=== PATIENT | female | born 1945 | race Caucasian/White ===

== ENCOUNTER 2023-08-14 20:10 | Inpatient (IN) | payer OTHER, SELFPAY ==
[2023-08-14] VITALS (8 sets, daily range): BP systolic 145–177; BP diastolic 77–138; BMI 25.6
--- NOTE | 2023-08-14 16:58 | ED.GENMED ---
History of Present Illness
General
Chief Complaint: Musculo-Skeletal Complaint
Time Seen by Provider: 08/14/23 16:46
Travel History
Have you had any contact with someone who has COVID-19?: No
Do you have any symptoms of coronavirus? Fever > 100 degrees, chills, cough, shortness of breath, sore throat, loss of taste or smell, muscle aches, or headache?: No
History of Present Illness
History of Present Illness:
78-year-old female with history of COPD and hypertension presents to the emergency department for evaluation of right hip pain after falling in her kitchen. She was able to call for help but she was unable to get up. Was not on the ground for more
than an hour. There is an obvious shortening and external rotation of the right hip. Denies head strike or loss of consciousness
Review of Systems
Review of Systems
Allergies reviewed?: Yes
All Other Systems: ROS reviewed and negative except as documented in HPI and ROS
Phy Exam
Physical Exam
Physical Exam:
GEN: Well appearing, NAD, WDWN
HEENT: Oral mucosa moist, no scleral icterus
Cardiac: Regular rate
Lung: No respiratory distress, no tachypnea
MSK: Obvious shortening and external rotation of the right lower extremity with focal tenderness to the right hip
Skin: Good color, no pallor or jaundice, no rashes
Neuro: AO x3, moves all extremities freely
Psych: Calm, cooperative
Course
Orders/Labs/Results
Orders:
Orders
08/14/23 Dinner
Regular
08/14/23 16:57
HYDROmorphone [Dilaudid] 0.2 mg IV NOW STA
CR Hip - RT w/wo Pel 2-3 Vw* Urgent
Comment:
Reason For Exam: fall hip pain
Include a pelvis x-ray?: Yes
08/14/23 17:11
Complete Blood Count/With Diff Urgent
Comprehensive Metabolic Panel Urgent
08/14/23 18:25
HYDROmorphone [Dilaudid] 0.2 mg IV NOW STA
08/14/23 19:15
Add On- LAB Routine
Tests Added?: vitamin d-oh
08/14/23 19:16
EKG [Electrocardiogram (*1)] Routine
Reason for Study: PreOp
08/14/23 19:43
Admit/Transfer Patient As Directed
Co-Sign Provider:
Level of Care: Inpatient admission
Assign to:: Medical/Surgical
Physician / Group: Maryam Heck
Diagnosis: c
Reason for Hospitalization: right hip fracture
Expected length of stay greater than two midnights?: Yes
ELOS- Estimated Length of Stay in days: 3
I certify the patient meets the requirements for IP care: Yes
08/14/23 19:44
Code Status As Directed
Resuscitation Status: Full Code
08/14/23 20:48
Acetaminophen [Tylenol] 650 mg PO Q4HPRN PRN
Bisacodyl [Dulcolax] 10 mg RECTAL [id number] PRN
Docusate W/Senna [Senokot-S] 1 tablet PO BIDPRN PRN
HYDROmorphone [Dilaudid] 0.5 mg IV Q3HPRN PRN
Ondansetron Injectable [Zofran] 4 mg IV Q6HPRN PRN
Polyethylene Glycol Powder [Miralax] 17 grams PO DAILYPRN PRN
08/14/23 20:48
ORTHOPEDIC CONSULT Routine
Consulting Provider: Ramo Clark
Was physician already notified: Yes
Activity As Directed
Activity Level: As Tolerated
Pneumatic Compression Sleeves As Directed
Type: Knee high
Vital Signs As Directed
Frequency: Per unit guidelines
DX Deep Vein Thrombosis Video Routine
08/15/23 Breakfast
NPO
Allow oral meds: Yes
Allow clear liquids: No
Basic Metabolic Panel IN AM
Complete Blood Count/With Diff IN AM
Magnesium IN AM
Abnormal Lab Results
08/14/23
17:11
WBC 16.6 H 10^3/uL
(4.8-10.8)
RBC 4.01 L 10^6/uL
(4.20-5.40)
MCH 32.9 H pg
(27.0-31.0)
Abs Immat Gran (auto) 0.1 H 10^3/uL
(0-0.05)
Absolute Neuts (auto) 13.6 H 10^3/uL
(1.4-6.5)
Absolute Monos (auto) 1.2 H 10^3/uL
(0.1-0.6)
Immature Gran % 0.7 H %
(0-0.5)
Neutrophils % 81.5 H %
(42.2-75.2)
Lymphocytes % 9.9 L %
(20.5-51.1)
BUN 24 H mg/dl
(7-17)
Creatinine 0.5 L mg/dL
(0.6-1.0)
Glucose 125 H mg/dl
(70-99)
Calcium 10.3 H mg/dl
(8.4-10.2)
08/14/23 17:11
08/14/23 17:11
Vital Signs
Initial and Last Documented VS:
Initial Vital Signs
Temp Pulse Resp BP Pulse Ox
97.9 F 75 20 169/138 95
08/14/23 16:08 08/14/23 16:08 08/14/23 16:08 08/14/23 16:08 08/14/23 16:08
Last Documented Vital Signs
Temp Pulse Resp BP Pulse Ox
97.9 F 92 25 151/78 94
08/14/23 16:08 08/14/23 20:40 08/14/23 20:40 08/14/23 20:40 08/14/23 20:40
MDM/Problems Addressed
MDM/Problems Addressed:
X-rays of the right hip and pelvis independently interpreted by me show a displaced and shortened femoral neck fracture. Patient be admitted to the hospitalist service for orthopedic consultation and operative intervention
*Critical Care Note
Total Time (30-74mins, 75-104mins- exclusive of procedures): Not Applicable
ED Attending Note
-
Portions of this chart may have been created with voice recognition software.� Occasional wrong word or��sound alike� substitutions may have occurred due to the inherent limitations of voice recognition software.
Discharge Plan
Departure
Patient Disposition: Admit
Date of Disposition: 08/14/23
Time of Disposition: 19:11
Presentation/result/management discussed w/ accepting MD/DO: Hospitalist
Discharge Problem:
Closed fracture of neck of right femur
Interventions
Interventions:
*Risk Screen - Suicide Last Done: 08/14/23 16:08
*General Assessment Last Done: 08/14/23 16:08
*Neglect/Abuse Screening Last Done: 08/14/23 16:08
ED- Fall Risk Assessment Last Done: 08/14/23 16:14
*ED COVID-19 Vaccine History Last Done: 08/14/23 16:08
*Nursing Disposition Last Done: 08/14/23 20:44
ED-Musculoskeletal Assessment Last Done: 08/14/23 16:14
Discharge Date and Time
Discharge Date/Time: 08/14/23 20:45
[2023-08-14] MEDS: DILAUDID 0.200000000000000011 MG IV ×2 (17:11→18:29)
[2023-08-14 17:29] LABS: % Basophils 0.2 % (0-2); % Eosinophils 0.8 % (0-6); % Immature Granulocytes 0.7 % (0-0.5); % Lymphocytes 9.9 % (20.5-51.1); % Monocytes 6.9 % (1.7-9.3); % Neutrophils 81.5 % (42.2-75.2); Absolute Eosinophils 0.1 10^3/uL (0-0.7); Absolute Immature Granulocytes 0.1 10^3/uL (0-0.05); Absolute Lymphocytes 1.7 10^3/uL (1.2-3.4); Absolute Monocytes 1.2 10^3/uL (0.1-0.6); Absolute Neutrophils 13.6 10^3/uL (1.4-6.5); Hematocrit 37.3 % (37.0-47.0); Hemoglobin 13.2 g/dL (12.0-16.0); Mean Corp Hgb Conc. 35.4 g/dL (33.0-37.0); Mean Corpuscular Hgb 32.9 pg (27.0-31.0); Mean Platelet Volume 10.1 fL (7.4-10.4); Nucleated Red Blood Cells % 0 %; Platelet Count 203 10^3/uL (130-400); Red Blood Cell Count 4.01 10^6/uL (4.20-5.40); Red Cell Dist. Width 13.5 % (11.5-14.5); White Blood Cell Count 16.6 10^3/uL (4.8-10.8)
[2023-08-14 17:43] LABS: ALT (SGPT) 23 U/L (0-35); AST (SGOT) 28 U/L (14-36); Albumin 4.4 g/dl (3.5-5.0); Alkaline Phosphatase 113 U/L (38-126); Blood Urea Nitrogen 24 mg/dl (7-17); Calcium 10.3 mg/dl (8.4-10.2); Carbon Dioxide 23 mmol/L (22-30); Chloride 104 mmol/L (98-107); Estimated Creatinine Clearance 70 ml/min; Glucose 125 mg/dl (70-99); Potassium 3.9 mmol/L (3.5-5.1); Sodium 136 mmol/L (135-145); Total Bilirubin 0.8 mg/dl (0.2-1.3); Total Protein 7.9 g/dl (6.3-8.2); eGFR > 60.00
--- NOTE | 2023-08-14 19:11 | HPS.HSE ---
Addendum entered and electronically signed by Maryam Heck MD 08/14/23 20:18:
hold MACHINE SLAT BASKET MAKER Losartan and Spironolactone pre surgery - monitor BP
Original Note:
Family Physician
-
Family Physician: Lloyd Marti
Chief Complaint
-
right hip pain
History of Present Illness
Ms. Merry Rodrigues is a 78 yo woman with hx HTN, COPD, SARTHAK presents to the ER with right hip pain s/p fall. Patient was in her kitchen and reaching to put something on the counter when tripped and fell on her right side. She lives alone. She was
wearing an apple watch and was able to call her son to come help her.
Patient denies dizziness or palpitations prior to episode. She states that she has had work-up of intermittent non-exertional chest pain in past with normal results, she thinks she had a stress test. This has been occurring over years. She has
COPD
No recent refevers/chills. Had covid one month ago and took Paxlovid. No nausea/vomiting. Has IBS.
Medical History
Past Medical History
Past Medical History: Reports Other (hypertension, COPD, sarcoidosis, positive AFB, spinal stenosis, lower extremity neuropathy,)
Past Surgical History: Reports None
Social History
Tobacco: Former Smoker
Alcohol: None
Drug: None
Family History
Family History: Not pertinent
Allergies / Home Medications
Allergies reflects when Allergies were last updated in [facility].
Home Medications with original date entered in [facility]
Allergy/Medication List:
Allergies
Allergy/AdvReac Type Severity Reaction Status Date / Time
HEAVENLY Inhibitors Allergy cough Verified 01/05/23 21:03
amlodipine Allergy Swelling Verified 01/05/23 21:03
hydralazine Allergy Rash Verified 01/05/23 21:03
Influenza Virus Vaccines Allergy Hives Verified 01/05/23 21:03
levofloxacin [From Levaquin] Allergy Rash Verified 01/05/23 21:03
Home Medications
losartan 100 mg tablet 100 mg PO DAILY Blood Pressure 08/28/17
carvedilol 25 mg tablet 25 mg PO BID Blood Pressure 11/15/22
naproxen sodium 220 mg tablet (Aleve) 220 mg PO HS Pain 11/15/22
naproxen sodium 220 mg tablet (Aleve) 440 mg PO DAILY Pain 11/15/22
hydrochlorothiazide 12.5 mg tablet 12.5 mg PO BID #14 tabs 01/05/23
*awaiting final med rec
Review of Systems
-
History Source: Patient
A 12 point ROS was completed and negative except as noted: Yes
Physical Exam
Vital Signs
Vital Signs
Temp Pulse Resp BP Pulse Ox
97.9 F 86 15 155/77 95
08/14/23 16:08 08/14/23 19:01 08/14/23 19:01 08/14/23 18:00 08/14/23 19:01
Physical Exam
General: No Apparent Distress
HEENT: PERRLA
Respiratory: Clear; No Wheezes
Cardiac: S1/S2 and Regular Rhythm
GI: Soft and Non Tender
Musculoskeletal: No Edema
Skin: Warm and Dry; No Rash
Neuro: AO x 3
Psych: Calm
Laboratory Results
-
08/14/23 17:11
08/14/23 17:11
Laboratory Results
Total Bilirubin 0.8 mg/dl (0.2-1.3) 08/14/23 17:11
AST 28 U/L (14-36) 08/14/23 17:11
ALT 23 U/L (0-35) 08/14/23 17:11
Alkaline Phosphatase 113 U/L (38-126) 08/14/23 17:11
Data Reviewed
-
Diagnostic Radiology: Report Reviewed by me
Lab Data: Labs Reviewed by me
Impression/Plan
-
Ms. Merry Rodrigues is a 78 yo woman with hx HTN, COPD, sarcoidosis presents to the ER with right hip pain s/p fall resulting in right hip fracture.
Triage VS: T 97.9, P 75, RR 20, BP 169/138, SpO2 95%
LABS: WBC 16.6, Hg 13.2, PLT 203, Na 136, K+ 3.9, BUN 24, Cr 0.5, Glucose 125, Ca 10.3, T. Bili 0.8, AST 28, ALT 23, Alk Phos 113
Hip X-Ray Right Femoral Neck Fracture
Right Hip Fracture
-admit to med/surg
-Alena perioperative risk score = 0.2%; benefits of procedure outweigh benefits
-will obtain pre-op EKG
-NPO after MN
-Dr. Clark aware of admission
-pain control with IV dilaudid overnight
-SCD overnight for DVT PPx
Reactive Leukocytosis
-no e/o infection
-monitor
Essential HTN
-MACHINE SLAT BASKET MAKER Coreg and Losartan
*awaiting final med rec
DVT PPx SCD
[2023-08-14] MEDS: COREG 25 MG PO (20:40)
--- NOTE | 2023-08-14 22:18 | PTCARENOTE ---
pt transferred from ED approx 20:45, dx r hip fracture, vs stable, oriented to unit, precautions in place.
[2023-08-15] VITALS (8 sets, daily range): BP systolic 105–125; BP diastolic 54–66
[2023-08-15] MEDS: DILAUDID 0.5 MG IV (03:47)
[2023-08-15] MEDS: ZOFRAN 4 MG IV (03:47)
[2023-08-15 05:37] LABS: % Basophils 0.3 % (0-2); % Eosinophils 2.7 % (0-6); % Immature Granulocytes 0.5 % (0-0.5); % Lymphocytes 8.2 % (20.5-51.1); % Monocytes 6.4 % (1.7-9.3); % Neutrophils 81.9 % (42.2-75.2); Absolute Basophils 0.1 10^3/uL (0-0.2); Absolute Eosinophils 0.4 10^3/uL (0-0.7); Absolute Immature Granulocytes 0.1 10^3/uL (0-0.05); Absolute Lymphocytes 1.4 10^3/uL (1.2-3.4); Absolute Monocytes 1.1 10^3/uL (0.1-0.6); Absolute Neutrophils 13.6 10^3/uL (1.4-6.5); Hematocrit 35.6 % (37.0-47.0); Hemoglobin 12.6 g/dL (12.0-16.0); Mean Corp Hgb Conc. 35.4 g/dL (33.0-37.0); Mean Corpuscular Hgb 32.3 pg (27.0-31.0); Mean Corpuscular Volume 91.3 fL (81.0-99.0); Mean Platelet Volume 9.9 fL (7.4-10.4); Nucleated Red Blood Cells % 0 %; Platelet Count 196 10^3/uL (130-400); Red Cell Dist. Width 13.4 % (11.5-14.5); White Blood Cell Count 16.6 10^3/uL (4.8-10.8)
[2023-08-15 06:06] LABS: Blood Urea Nitrogen 21 mg/dl (7-17); Calcium 9.4 mg/dl (8.4-10.2); Carbon Dioxide 24 mmol/L (22-30); Chloride 104 mmol/L (98-107); Estimated Creatinine Clearance 70 ml/min; Glucose 119 mg/dl (70-99); Magnesium 1.9 mg/dl (1.6-2.3); Sodium 132 mmol/L (135-145); eGFR > 60.00
--- NOTE | 2023-08-15 08:11 | W.PN.UPDATE ---
Update Note
Progress Note Update
Full H&P to follow
78-year-old female with displaced right femoral neck fracture date of injury 14 Aug 2023
Isolated closed injury neurovascular intact
Recommended for surgery; consent obtained in chart for right hip hemiarthroplasty with Dr. Headley, possible Dr. Clark or Dr. Mesa if needed
Consent obtained and placed in chart. Laterality/skin signed. Patient's son present for discussion consent.
Patient ambulatory at baseline community ambulator with independent ADLs. No pre-existing hip osteoarthritic symptoms
Antibiotics on-call to the OR; n.p.o. Confirmed type and screen. Will update orders postop
[2023-08-15] MEDS: COREG PO ×2 (08:13→21:51)
--- NOTE | 2023-08-15 08:19 | CON.ORTHO ---
Consultation
-
Date/Time Consultation Requested: 14 Aug 2023 20:48
Date/Time Consultation Performed: 15 Aug 2023 0745
Requesting Provider: Dr. Maryam Heck
Performing Provider: LUISA Huston, Dr. Ramo Clark
Reason for Consultation: Right hip fracture
Consultation - Orthopedics
History
78-year-old female admitted to [facility] for sustained right hip injury after mechanical fall in her home yesterday with a date of injury of 14 Aug 2023. She had immediate pain and inability to bear weight contact emergency services
regarding [facility] which showed a displaced right hip fracture. She denies any previous hip pain or treatment for hip osteoarthritis. She does have a history of bilateral knee replacements. Denies any prodromal pain. Denies any
paresthesias. She is a community ambulator at baseline without assist devices with independent ADLs
Allergies / Home Medications
Medical History
Past Medical History
Past Medical History: Reports Other (hypertension, COPD, sarcoidosis, positive AFB, spinal stenosis, lower extremity neuropathy,)
Past Surgical History: Bilateral total knee arthroplasty
Social History
Tobacco: Former Smoker
Alcohol: None
Drug: None
Family History
Family History: Not pertinent
Allergy/AdvReac Type Severity Reaction Status Date / Time
HEAVENLY Inhibitors Allergy cough Verified 01/05/23 21:03
amlodipine Allergy Swelling Verified 01/05/23 21:03
hydralazine Allergy Rash/poss Verified 08/14/23 20:20
allergy?
Influenza Virus Vaccines Allergy Hives Verified 01/05/23 21:03
levofloxacin [From Levaquin] Allergy Rash/ITCHIN Verified 08/14/23 20:20
G
�Medication �Instructions �Recorded
losartan 100 mg tablet 100 mg PO NOON Blood Pressure 08/28/17
carvedilol 25 mg tablet 25 mg PO Q12H Blood Pressure 11/15/22
naproxen sodium 220 mg tablet 220 mg PO NOON Pain 11/15/22
(Aleve)
[place] Vitamin 1 cap PO BID Supplement 08/14/23
albuterol sulfate 90 mcg/actuation 2 puff inhalation R Q4HPRN PRN sob 08/14/23
aerosol inhaler
wpxibdtltwbw-bvlsrlmn-xqxmqt tablet 1 tab PO DAILY Supplement 08/14/23
naltrexone 2 mg PO DAILY 08/14/23
spironolactone 25 mg tablet 25 mg PO DAILY Fluid 08/14/23
Retention/Swelling
tiotropium bromide 2.5 2 inh inhalation R DAILY 08/14/23
mcg/actuation mist for inhalation
(Spiriva Respimat)
Vital Signs / Lab Results
Temp Pulse Resp BP Pulse Ox
98.9 F 61 14 125/67 92
08/14/23 23:10 08/15/23 08:13 08/14/23 23:10 08/15/23 08:13 08/14/23 23:10
08/15/23 05:21
08/15/23 05:21
IMAGING: X-rays taken of the pelvis and right hip show displaced right femoral neck fracture. Minimal hip arthrosis
Physical examination: Focused examination of the right lower extremity shows skin is intact with no erythema edema or ecchymosis. Neuro vas intact L3-S1. Right lower extremity shortened externally rotated.
Assessment / Plan
78-year-old female right displaced femoral neck fracture date of injury 14 Aug 2023
Her son was present; patient is consentable
Discussed with the patient as well as relative family members the significance of hip fractures there is an increased morbidity and mortality associated with these and they are significant injuries; reviewed that a portion of patient's return
towards ambulatory baseline status, another subset of patients are decreased when activity level, and other subset of patients pass away relative to comorbid conditions and decreased ambulatory status. Discussed it is recommended for majority of
patients to undergo operative intervention for optimal outcomes so that they may have an increased ambulatory status.
Images were shown and discussed with the patient regarding their injury. The injury and respective operative and nonoperative interventions reviewed with the patient and respective family members to include the risks and benefits rehabilitation and
prognosis for each. The treatment and operative technique, postoperative follow-up, postoperative rehabilitation and surgical prognosis was reviewed in detail. After thorough discussion of potential treatment options the patient and respective
family members wish to proceed with operative intervention.
It was further discussed with the patient that the injury sustained is considered a fragility fracture which occurs in the setting of osteoporosis. Discussed with the patient the significance of this as there is an increased risk of further
fragility fractures in the future. Recommend when discharged and in the nearby future for a follow-up with her primary care provider and discussion of management of osteoporosis and mitigating fall risk is much as possible in the future.
Recommended for surgery; consent obtained in chart for right hip hemiarthroplasty with Dr. Headley, possible Dr. Clark or Dr. Mesa if needed
Consent obtained and placed in chart. Laterality/skin signed. Patient's son present for discussion consent.
Patient ambulatory at baseline community ambulator with independent ADLs. No pre-existing hip osteoarthritic symptoms
Antibiotics on-call to the OR; n.p.o. Confirmed type and screen. Will update orders postop
[2023-08-15] MEDS: SPIRIVA RESPIMAT 2.5 MCG 2 PUFF INH (08:24)
--- NOTE | 2023-08-15 10:45 | W.PN.HOSP.TC ---
Today's Communication/Plan
-
Monitor vital signs see plan
Postop DVT prophylaxis per orthopedics
Continue with Spiriva
OR today
Assessment / Plan
Assessment / Plan
General: No Apparent Distress
HEENT: PERRLA
Respiratory: Clear; No Wheezes
Cardiac: S1/S2 and Regular Rhythm
GI: Soft and Non Tender
Musculoskeletal: No Edema
Skin: Warm and Dry; No Rash
Neuro: AO x 3
Psych: Calm
Right Hip Fracture s/p fall
Acute traumatic pathological fx 2/2 osteoporosis
-Alena perioperative risk score = 0.2%; benefits of procedure outweigh benefits
EKG with normal sinus rhythm with occasional PVC
-NPO for OR 08/14
Orthopedics following
-pain control
Reactive Leukocytosis
-no e/o infection
-monitor
Mild hyponatremia
monitor
History of osteoporosis
History of Sjogren's
Essential HTN
-POWER TOOL REPAIR TECHNICIAN Coreg
hold aldactone and losartan
History of COPD
Continue Spiriva
DVT PPx SCD
Anticipated Discharge: 24 - 48 hours
Subjective/Interval History
-
Date of Service: August 15, 2023
Denies nausea
Objective Data
-
Labs:
Laboratory Results
08/15/23
05:21
WBC 16.6 H
Hgb 12.6
Hct 35.6 L
Plt Count 196
Sodium 132 L
Potassium 4.0
Chloride 104
Carbon Dioxide 24
BUN 21 H
Creatinine 0.5 L
Glucose 119 H
Calcium 9.4
Vital Signs:
Vital Signs
Temp Pulse Resp BP Pulse Ox
99.4 F 72 16 125/66 97
08/15/23 08:29 08/15/23 08:29 08/15/23 08:31 08/15/23 08:29 08/15/23 08:31
I&O
08/14/23 08/15/23 08/16/23
06:59 06:59 06:59
Intake Total 120 / 120
Output Total 300 / 300
Balance -180 / -180
[2023-08-15] MEDS: TYLENOL 650 MG PO (11:38)
--- NOTE | 2023-08-15 12:13 | PTCARENOTE ---
Patient to OR for repair of right hip fracture
[2023-08-15] MEDS: ROXICODONE 5 MG PO (15:53)
[2023-08-15] MEDS: NORMOSOL-R 1000 IV (16:05)
--- NOTE | 2023-08-15 16:13 | CM ---
hotel assistant manager reviewed patient's chart and patient was admitted for right hip fracture, patient lives alone in a multilevel home with 2 steps to enter, patient has 1st floor bed and bathroom, patient is independent with adl's and ambulation, no dme,
patient drives. Patient has a prescription plan and patient uses [facility] pharmacy, patient would benefit from PT/OT evaluations to assist with discharge planning.
PCP: Dr. Marti
Plan; Await PT/OT for recommendations for skilled placement.
[2023-08-15] MEDS: NSS 1000 IV (16:27)
--- NOTE | 2023-08-15 16:29 | PTCARENOTE ---
Patient received from PACU in bed; IVF infusing; Patient on 2L NC; Surgical site assessed with EQUIPMENT VALIDATION ENGINEER, Right hip aquacell clean/dry/intact; Patient alert and oriented; Bilateral pedal pulses +2; Patient denies numbness and/or tingling to bilateral
legs; Sensation intact; Bed in lowest position, wheels locked; Call campos within reach; Family at bedside; Assessment ongoing
[2023-08-15] MEDS: ASPIRIN 325 MG PO (17:06)
[2023-08-15] MEDS: SENOKOT PO (21:53)
[2023-08-15] MEDS: COLACE 100 MG PO (21:53)
[2023-08-15] MEDS: ANCEF 5 IV (21:57)
[2023-08-16] VITALS (7 sets, daily range): BP systolic 116–134; BP diastolic 52–74; PULSE 81
[2023-08-16] MEDS: TYLENOL 650 MG PO ×2 (03:41→12:37)
[2023-08-16] MEDS: ANCEF 5 IV (06:23)
[2023-08-16] MEDS: FLUSH (NSS) 2 FLUSH IV (06:23)
[2023-08-16 07:17] LABS: % Basophils 0.1 % (0-2); % Immature Granulocytes 0.6 % (0-0.5); % Lymphocytes 6.2 % (20.5-51.1); % Monocytes 6.4 % (1.7-9.3); % Neutrophils 86.7 % (42.2-75.2); Absolute Immature Granulocytes 0.1 10^3/uL (0-0.05); Absolute Neutrophils 13.5 10^3/uL (1.4-6.5); Hemoglobin 11.4 g/dL (12.0-16.0); Mean Corp Hgb Conc. 35.6 g/dL (33.0-37.0); Mean Corpuscular Hgb 32.9 pg (27.0-31.0); Mean Corpuscular Volume 92.2 fL (81.0-99.0); Mean Platelet Volume 10.3 fL (7.4-10.4); Nucleated Red Blood Cells % 0 %; Platelet Count 173 10^3/uL (130-400); Red Blood Cell Count 3.47 10^6/uL (4.20-5.40); Red Cell Dist. Width 13.6 % (11.5-14.5); White Blood Cell Count 15.5 10^3/uL (4.8-10.8)
[2023-08-16 07:36] LABS: Blood Urea Nitrogen 15 mg/dl (7-17); Calcium 9.1 mg/dl (8.4-10.2); Carbon Dioxide 23 mmol/L (22-30); Chloride 105 mmol/L (98-107); Estimated Creatinine Clearance 70 ml/min; Glucose 123 mg/dl (70-99); Potassium 4.3 mmol/L (3.5-5.1); Sodium 132 mmol/L (135-145); eGFR > 60.00
[2023-08-16] MEDS: SPIRIVA RESPIMAT 2.5 MCG INH (07:53)
[2023-08-16] MEDS: SENOKOT PO ×2 (09:06→19:49)
[2023-08-16] MEDS: COLACE PO (09:06)
--- NOTE | 2023-08-16 09:25 | W.PN.ORTHO ---
Today's Communication / Plan
-
Patient doing well this AM
Plan will be for SNF given home situation, appreciate CM
Continue WBAT RLE on walker
PT/OT, THPs x 6 weeks
Dressing to remain 7-10 days
ASA 325mg daily x 4 weeks for DVT prophylaxis
Ice to hip as needed, narcs is absolutely necessary
Will follow
Assessment
.
Distal Motor Intact: Yes
Dressing:
Clean, dry and intact. Aquacel in place right hip
Assessment:
POD#1 Right hip chaka
Overall doing/feeling well
DNVI RLE
Plan
.
Surgery / Date: Right hip Chaka August 28 ([facility])
DVT Prophylaxis: Aspirin
Activity:
Out of bed. WBAT RLE on walker
PT/OT, THPs x 6 weeks
Discharge Plan: SNF
Subjective
.
.:
Patient resting comfortably. Worked with PT this AM. Overall feeling well
Vital Signs and Labs
.
Vital Signs and Labs:
Lab Results
08/16/23 06:36
08/16/23 06:36
Temp Pulse Resp BP Pulse Ox
97.6 F 73 16 116/64 93
08/16/23 07:10 08/16/23 07:10 08/16/23 07:10 08/16/23 07:10 08/16/23 07:10
[2023-08-16] MEDS: ASPIRIN 325 MG PO (09:49)
[2023-08-16] MEDS: COREG PO (09:55)
--- NOTE | 2023-08-16 10:32 | W.PN.HOSP.TC ---
Today's Communication/Plan
-
Monitor vitals
See plan
Monitor leukocytosis
PT/OT
pain control
Assessment / Plan
Assessment / Plan
General: No Apparent Distress
HEENT: PERRLA
Respiratory: Clear; No Wheezes
Cardiac: S1/S2 and Regular Rhythm
GI: Soft and Non Tender
Musculoskeletal: No Edema
Skin: Warm and Dry; No Rash
Neuro: AO x 3
Psych: Calm
Right Hip Fracture s/p fall
s/p Right hip kathrine 08/14
Acute traumatic pathological fx 2/2 osteoporosis
-Alena perioperative risk score = 0.2%; benefits of procedure outweigh benefits
pt/ot rec home health
Orthopedics following
-pain control
Reactive Leukocytosis
-no e/o infection
-monitor
Mild hyponatremia
monitor
History of osteoporosis
History of Sjogren's
Essential HTN
-FACE HARDENER Coreg
hold aldactone and losartan
History of COPD
Continue Spiriva
DVT PPx ASA
Anticipated Discharge: 24 - 48 hours
Subjective/Interval History
-
Date of Service: August 16, 2023
has some pain at times
Objective Data
-
Labs:
Laboratory Results
08/16/23
06:36
WBC 15.5 H
Hgb 11.4 L
Hct 32.0 L
Plt Count 173
Sodium 132 L
Potassium 4.3
Chloride 105
Carbon Dioxide 23
BUN 15
Creatinine 0.5 L
Glucose 123 H
Calcium 9.1
Vital Signs:
Vital Signs
Temp Pulse Resp BP Pulse Ox
97.6 F 82 16 108/68 93
08/16/23 07:10 08/16/23 09:55 08/16/23 07:10 08/16/23 09:55 08/16/23 07:10
I&O
08/15/23 08/16/23 08/17/23
06:59 06:59 06:59
Intake Total 120 / 120 985 / 985
Output Total 300 / 300 400 / 400
Balance -180 / -180 585 / 585
--- NOTE | 2023-08-16 16:02 | CM ---
Reviewed the chart notes and spoke with the patient at the bedside. PT/OT evaluation today recommends home with VN services. Discussed discharging to home with VN services. Patient's daughter will be able to stay with the patient starting on
Friday and the patient is agreeable to VN services. Referral sent via [facility]. CM continues to be available to patient/family and is monitoring medical plan for needs at discharge.
Plan: Discharge to home on Friday with VN services. This is when daughter and family are available to assist the patient.
[2023-08-16] MEDS: COLACE 100 MG PO (19:49)
[2023-08-16] MEDS: COREG 25 MG PO (19:55)
[2023-08-17 00:08] VITALS: BP 117/65
[2023-08-17] MEDS: TYLENOL 650 MG PO (00:51)
[2023-08-17 01:44] LABS: Vitamin D 1,25 Dihydroxy 45.3 pg/mL (19.9-79.3)
[2023-08-17 07:10] VITALS: BP 109/60
[2023-08-17 07:13] LABS: % Basophils 0.2 % (0-2); % Eosinophils 3.4 % (0-6); % Immature Granulocytes 2.1 % (0-0.5); % Lymphocytes 13.3 % (20.5-51.1); % Monocytes 9.9 % (1.7-9.3); % Neutrophils 71.1 % (42.2-75.2); Absolute Eosinophils 0.3 10^3/uL (0-0.7); Absolute Immature Granulocytes 0.2 10^3/uL (0-0.05); Absolute Lymphocytes 1.1 10^3/uL (1.2-3.4); Absolute Monocytes 0.8 10^3/uL (0.1-0.6); Hematocrit 32.7 % (37.0-47.0); Hemoglobin 11.3 g/dL (12.0-16.0); Mean Corp Hgb Conc. 34.6 g/dL (33.0-37.0); Mean Corpuscular Hgb 32.9 pg (27.0-31.0); Mean Corpuscular Volume 95.3 fL (81.0-99.0); Mean Platelet Volume 10.4 fL (7.4-10.4); Nucleated Red Blood Cells % 0 %; Platelet Count 153 10^3/uL (130-400); Red Blood Cell Count 3.43 10^6/uL (4.20-5.40); Red Cell Dist. Width 13.7 % (11.5-14.5); White Blood Cell Count 8.5 10^3/uL (4.8-10.8)
[2023-08-17 07:26] LABS: Blood Urea Nitrogen 14 mg/dl (7-17); Calcium 9.2 mg/dl (8.4-10.2); Carbon Dioxide 27 mmol/L (22-30); Chloride 102 mmol/L (98-107); Estimated Creatinine Clearance 70 ml/min; Glucose 88 mg/dl (70-99); Potassium 3.9 mmol/L (3.5-5.1); Sodium 132 mmol/L (135-145); eGFR > 60.00
[2023-08-17] MEDS: SPIRIVA RESPIMAT 2.5 MCG 2 PUFF INH (07:57)
[2023-08-17 08:40] VITALS: BP 121/67; PULSE 71
[2023-08-17] MEDS: ASPIRIN 325 MG PO (08:53)
[2023-08-17] MEDS: COLACE PO ×3 (08:54→20:11)
[2023-08-17] MEDS: SENOKOT PO ×3 (08:54→20:11)
[2023-08-17] MEDS: COREG PO ×2 (08:55→20:52)
--- NOTE | 2023-08-17 09:18 | W.PN.ORTHO ---
Today's Communication / Plan
-
Patient doing well this AM, bit more pain overnight
Plan for home with VNS vs. SNF, appreciate CM
Continue WBAT RLE on walker
PT/OT, THPs x 6 weeks
Dressing to remain 7-10 days
ASA 325mg daily x 4 weeks for DVT prophylaxis
Ice to hip as needed, narcs if absolutely necessary
Orthopaedics to sign off for now, please reengage with pertinent questions, if needed
Assessment
.
Distal Motor Intact: Yes
Dressing:
Clean, dry and intact. Aquacel in place right hip
Assessment:
POD#2 Right hip Chaka]
Overall doing well
Calf soft, nontender
Plan
.
Surgery / Date: Right hip Chaka August 28 ([facility])
DVT Prophylaxis: Aspirin
Activity:
Out of bed. WBAT RLE
PT/OT, THPs x 6 weeks
Discharge Plan: Home w/ VN and SNF
Subjective
.
.:
Patient resting comfortably. Had increased pain overnight, but not unexpected
Vital Signs and Labs
.
Vital Signs and Labs:
Lab Results
08/17/23 05:58
08/17/23 05:58
Temp Pulse Resp BP Pulse Ox
98.5 F 57 16 109/60 94
08/17/23 07:10 08/17/23 08:55 08/17/23 08:01 08/17/23 08:55 08/17/23 08:01
[2023-08-17] MEDS: ROXICODONE 10 MG PO (09:21)
--- NOTE | 2023-08-17 10:56 | W.PN.HOSP.TC ---
Today's Communication/Plan
-
Monitor vital signs and see plan
Pain control
Continue aspirin for DVT prophylaxis
Continue to hold losartan, Aldactone
Pain control
dispo planning
Assessment / Plan
Assessment / Plan
General: No Apparent Distress
HEENT: PERRLA
Respiratory: Clear; No Wheezes
Cardiac: S1/S2 and Regular Rhythm
GI: Soft and Non Tender
Musculoskeletal: No Edema
Skin: Warm and Dry; No Rash
Neuro: AO x 3
Psych: Calm
Right Hip Fracture s/p fall
s/p Right hip kathrine /10
Acute traumatic pathological fx 2/2 osteoporosis
-Alena perioperative risk score = 0.2%; benefits of procedure outweigh benefits
pt/ot rec home health
Orthopedics following
-pain control
Reactive Leukocytosis
Resolved
Mild hyponatremia
monitor
History of osteoporosis
History of Sjogren's
Essential HTN
-HOSPITAL PHARMACY DIRECTOR Coreg
hold aldactone and losartan
History of COPD
Continue Spiriva
DVT PPx ASA
Anticipated Discharge: Within 24 hours
Subjective/Interval History
-
Date of Service: August 17, 2023
has some pain
Objective Data
-
Labs:
Laboratory Results
08/17/23
05:58
WBC 8.5
Hgb 11.3 L
Hct 32.7 L
Plt Count 153
Sodium 132 L
Potassium 3.9
Chloride 102
Carbon Dioxide 27
BUN 14
Creatinine 0.6
Glucose 88
Calcium 9.2
Vital Signs:
Vital Signs
Temp Pulse Resp BP Pulse Ox
98.5 F 57 16 109/60 94
08/17/23 07:10 08/17/23 08:55 08/17/23 08:01 08/17/23 08:55 08/17/23 08:01
I&O
08/16/23 08/17/23 08/18/23
06:59 06:59 06:59
Intake Total 985 / 985 1100 / 1100
Output Total 400 / 400
Balance 585 / 585 1100 / 1100
[2023-08-17 15:10] VITALS: BP 100/52
--- NOTE | 2023-08-17 15:44 | CM ---
Reviewed the chart notes and spoke with the patient and her son at the bedside. Son is against patient returning to home with his sister and VN services. Son feels patient requires SNF. Explained PT recommendations of home with home health.
Son in disagreement. Explained that the patient was walking 100ft with walker and that insurance would most likely not authorize a stay in a SNF. Patient's son feels patient has pain/discomfort and should go to SNF to address this issues.
Explained that the patient this is an expected issue after a fall and surgery. This will be managed with pain medication and time. Will need to have patient reassessed on Friday to see if ambulation has decreased. CM continues to be available to
patient/family and is monitoring medical plan for needs at discharge.
Plan: Discharge plans will depend on the patient's progress. Initially home with VN, but son is objecting to home with his sister as caregiver. Patient ambulated 100ft with rolling walker x 2.
[2023-08-17 23:05] VITALS: BP 110/75
[2023-08-18] MEDS: TYLENOL 650 MG PO ×2 (04:57→20:21)
[2023-08-18 05:44] LABS: % Basophils 0.5 % (0-2); % Eosinophils 4.3 % (0-6); % Immature Granulocytes 0.6 % (0-0.5); % Lymphocytes 15.8 % (20.5-51.1); % Monocytes 13.4 % (1.7-9.3); % Neutrophils 65.4 % (42.2-75.2); Absolute Eosinophils 0.4 10^3/uL (0-0.7); Absolute Immature Granulocytes 0.1 10^3/uL (0-0.05); Absolute Lymphocytes 1.3 10^3/uL (1.2-3.4); Absolute Monocytes 1.1 10^3/uL (0.1-0.6); Absolute Neutrophils 5.3 10^3/uL (1.4-6.5); Hematocrit 33.3 % (37.0-47.0); Hemoglobin 11.7 g/dL (12.0-16.0); Mean Corp Hgb Conc. 35.1 g/dL (33.0-37.0); Mean Corpuscular Hgb 32.4 pg (27.0-31.0); Mean Corpuscular Volume 92.2 fL (81.0-99.0); Mean Platelet Volume 10.4 fL (7.4-10.4); Nucleated Red Blood Cells % 0 %; Platelet Count 167 10^3/uL (130-400); Red Blood Cell Count 3.61 10^6/uL (4.20-5.40); Red Cell Dist. Width 13.8 % (11.5-14.5); White Blood Cell Count 8.1 10^3/uL (4.8-10.8)
[2023-08-18 06:19] LABS: Blood Urea Nitrogen 12 mg/dl (7-17); Calcium 9.1 mg/dl (8.4-10.2); Carbon Dioxide 24 mmol/L (22-30); Chloride 100 mmol/L (98-107); Estimated Creatinine Clearance 70 ml/min; Glucose 97 mg/dl (70-99); Potassium 3.8 mmol/L (3.5-5.1); Sodium 133 mmol/L (135-145); eGFR > 60.00
[2023-08-18 07:05] VITALS: BP 107/59
[2023-08-18] MEDS: SPIRIVA RESPIMAT 2.5 MCG 2 PUFF INH (08:07)
[2023-08-18] MEDS: ASPIRIN 325 MG PO (08:14)
[2023-08-18] MEDS: SENOKOT PO ×2 (08:18→20:25)
[2023-08-18] MEDS: COLACE PO (08:18)
[2023-08-18] MEDS: COREG PO ×2 (08:18→20:24)
[2023-08-18 09:32] VITALS: BP 122/74; BP 127/83; PULSE 93
--- NOTE | 2023-08-18 09:39 | W.PN.HOSP.TC ---
Today's Communication/Plan
-
monitor vitals
see plan
pt/ot
dc today
pain control
hold losartan and aldactone
time of discharge 38 minutes
Assessment / Plan
Assessment / Plan
General: No Apparent Distress
HEENT: PERRLA
Respiratory: Clear; No Wheezes
Cardiac: S1/S2 and Regular Rhythm
GI: Soft and Non Tender
Musculoskeletal: No Edema
Skin: Warm and Dry; No Rash
Neuro: AO x 3
Psych: Calm
Right Hip Fracture s/p fall
s/p Right hip kathrine /10
Acute traumatic pathological fx 2/2 osteoporosis
-Alena perioperative risk score = 0.2%; benefits of procedure outweigh benefits
pt/ot rec home health
Orthopedics following; patient to f/u with ortho outpatient
-pain control
Reactive Leukocytosis
Resolved
Mild hyponatremia
monitor
History of osteoporosis
History of Sjogren's
Essential HTN
-PAYROLL ANALYST Coreg
hold aldactone and losartan
History of COPD
Continue Spiriva
DVT PPx ASA
PT/OT: patient has been ambulating well with walker with PT. plan would be to go home
Anticipated Discharge: Today
Subjective/Interval History
-
Date of Service: August 18, 2023
has some pain
Objective Data
-
Labs:
Laboratory Results
08/18/23
04:45
WBC 8.1
Hgb 11.7 L
Hct 33.3 L
Plt Count 167
Sodium 133 L
Potassium 3.8
Chloride 100
Carbon Dioxide 24
BUN 12
Creatinine 0.5 L
Glucose 97
Calcium 9.1
Vital Signs:
Vital Signs
Temp Pulse Resp BP Pulse Ox
97.9 F 83 16 107/59 92
08/18/23 07:05 08/18/23 08:18 08/18/23 08:11 08/18/23 08:18 08/18/23 08:11
I&O
08/17/23 08/18/23 08/19/23
06:59 06:59 06:59
Intake Total 1100 / 1100 660 / 660
Balance 1100 / 1100 660 / 660
[2023-08-18] MEDS: FLUSH (NSS) 2 FLUSH IV (10:16)
[2023-08-18] MEDS: ZOFRAN 4 MG IV (10:16)
[2023-08-18] MEDS: DULCOLAX 10 MG RECTAL (10:49)
[2023-08-18] MEDS: MIRALAX 17 GRAMS PO (14:14)
--- NOTE | 2023-08-18 14:31 | CM ---
Patient needs to have BM prior to discharging. Discharge on hold until able to have BM. Discharge plan of care: Home with [facility], PT/OT. Daughter will remain with patient at home. IMM signed.
[2023-08-18 15:05] VITALS: BP 112/63
[2023-08-18 15:39] VITALS: BP 112/63
[2023-08-18 15:48] VITALS: BP 131/70; PULSE 82; O2SAT 92
[2023-08-18] MEDS: COLACE 100 MG PO (20:17)
[2023-08-18 23:48] VITALS: BP 117/61
[2023-08-19 05:17] LABS: % Basophils 0.7 % (0-2); % Eosinophils 4.1 % (0-6); % Immature Granulocytes 0.7 % (0-0.5); % Lymphocytes 18.5 % (20.5-51.1); Absolute Basophils 0.1 10^3/uL (0-0.2); Absolute Eosinophils 0.3 10^3/uL (0-0.7); Absolute Immature Granulocytes 0.1 10^3/uL (0-0.05); Absolute Lymphocytes 1.5 10^3/uL (1.2-3.4); Absolute Neutrophils 5.1 10^3/uL (1.4-6.5); Hematocrit 32.9 % (37.0-47.0); Hemoglobin 11.6 g/dL (12.0-16.0); Mean Corp Hgb Conc. 35.3 g/dL (33.0-37.0); Mean Corpuscular Hgb 32.7 pg (27.0-31.0); Mean Corpuscular Volume 92.7 fL (81.0-99.0); Mean Platelet Volume 10.1 fL (7.4-10.4); Nucleated Red Blood Cells % 0 %; Platelet Count 173 10^3/uL (130-400); Red Blood Cell Count 3.55 10^6/uL (4.20-5.40); Red Cell Dist. Width 13.7 % (11.5-14.5)
[2023-08-19 05:38] LABS: Blood Urea Nitrogen 17 mg/dl (7-17); Carbon Dioxide 27 mmol/L (22-30); Chloride 101 mmol/L (98-107); Estimated Creatinine Clearance 70 ml/min; Glucose 103 mg/dl (70-99); Potassium 3.8 mmol/L (3.5-5.1); Sodium 135 mmol/L (135-145); eGFR > 60.00
[2023-08-19 07:16] VITALS: BP 112/62
[2023-08-19] MEDS: SPIRIVA RESPIMAT 2.5 MCG 2 PUFF INH (08:19)
[2023-08-19] MEDS: MIRALAX 17 GRAMS PO (08:41)
[2023-08-19] MEDS: ASPIRIN 325 MG PO (08:42)
[2023-08-19] MEDS: SENOKOT 17.1999999999999993 MG PO (08:42)
[2023-08-19] MEDS: COLACE 100 MG PO (08:42)
[2023-08-19] MEDS: COREG PO (08:45)
--- NOTE | 2023-08-19 09:48 | W.PN.HOSP.TC ---
Addendum entered and electronically signed by Demetrio Villegas MD 08/19/23 17:51:
Post enema patient developed crampy abdominal pain along with multiple loose BM with last one small amount of blood. Also had non bloody vomiting. check abdominal xray and hgb. If rectal bleeding persist then do CT abd/pelvis. Will hold dc for now.
Addendum entered and electronically signed by Demetrio Villegas MD 08/19/23 13:10:
enema was given earlier. Had a BM after. will dc her on laxatives.
time of discharge 37 minutes
Original Note:
Today's Communication/Plan
-
Monitor vital signs see plan
Continue with laxatives, if no improvement then will get enema
dc later today after BM
pt/ot rec home with walker
pain control
Assessment / Plan
Assessment / Plan
General: No Apparent Distress
HEENT: PERRLA
Respiratory: Clear; No Wheezes
Cardiac: S1/S2 and Regular Rhythm
GI: Soft and Non Tender
Musculoskeletal: No Edema
Skin: Warm and Dry; No Rash
Neuro: AO x 3
Psych: Calm
Right Hip Fracture s/p fall
s/p Right hip kathrine 10
Acute traumatic pathological fx 2/2 osteoporosis
-Carvajal perioperative risk score = 0.2%; benefits of procedure outweigh benefits
pt/ot rec home health
Orthopedics following; patient to f/u with ortho outpatient
-pain control
Constipation
cw laxatives,suppositories
if no result later today then enema
Reactive Leukocytosis
Resolved
Mild hyponatremia
Resolved
History of osteoporosis
History of Sjogren's
Essential HTN
-RENTAL MANAGEMENT TRAINEE Coreg
hold aldactone and losartan
History of COPD
Continue Spiriva
DVT PPx ASA
PT/OT: patient has been ambulating well with walker with PT. plan would be to go home
Anticipated Discharge: Today
Subjective/Interval History
-
Date of Service: August 19, 2023
Denies pain
Objective Data
-
Labs:
Laboratory Results
08/19/23
04:29
WBC 8.0
Hgb 11.6 L
Hct 32.9 L
Plt Count 173
Sodium 135
Potassium 3.8
Chloride 101
Carbon Dioxide 27
BUN 17
Creatinine 0.6
Glucose 103 H
Calcium 9.0
Vital Signs:
Vital Signs
Temp Pulse Resp BP Pulse Ox
98 F 80 16 112/62 92
08/19/23 07:16 08/19/23 08:27 08/19/23 08:27 08/19/23 07:16 08/19/23 09:23
I&O
08/18/23 08/19/23 08/20/23
06:59 06:59 06:59
Intake Total 660 / 660 960 / 960
Balance 660 / 660 960 / 960
--- NOTE | 2023-08-19 13:19 | W.DCSUMMARY ---
Discharge Summary
Discharge Data
Date of Admission: 08/14/23
Date of Discharge: 08/19/23
-
Pending Results: No
Hospital Course
78-year-old female with past medical history of osteoporosis, Sjogren's disease, hypertension, COPD came to the hospital after a fall with a right hip fracture. Patient was taken to the OR by orthopedics for right hip Chaka arthroplasty. Patient
was later monitored in the hospital with physical therapy. Patient did well with physical therapy who cleared the patient to go home with walker. Patient hospital course was complicated by constipation which over time improved with laxatives and
enema. Patient blood pressures were still on the normal side so her losartan and Aldactone was held on discharge. Patient instructed to resume blood pressure medications once her blood pressure is high. Once patient symptoms continue to improve,
she was then discharged home with instructions to follow-up with all her physicians outpatient.
Discharge Plan
-
Patient Disposition: Home with Home Care
Discharge Diagnosis/Procedures: Right Hip Fracture s/p fall
Reactive leukocytosis
Mild hyponatremia
Constipation
Diet: As tolerated
Activity: As tolerated and Other activity
Additional Activity: WBAT RLE on walker
Driving Restrictions: Not until seen by your Dr
Bathing Restrictions: None
Activity Restrictions/Additional Instructions:
Continue WBAT RLE on walker
PT/OT, THPs x 6 weeks
Dressing to remain 7-10 days
ASA 325mg daily x 4 weeks for DVT prophylaxis
Ice to hip as needed, narcs if absolutely necessary
Referrals:
Bandar Hedaley MD [Active] - in one week
Lloyd Marti MD [Family Provider] - in less than 1 week
Prescriptions:
New
sennosides [Senna Laxative] 8.6 mg Tablet
17.2 mg PO BID Qty: 60 0RF
acetaminophen 325 mg Tablet
650 mg PO Q4HPRN PRN (Reason: mild pain/GREEN/temp> 100.4F) Qty: 0 0RF
polyethylene glycol 3350 [HealthyLax] 17 gram Powder In Packet
17 g PO DAILY Qty: 30 0RF
aspirin 325 mg Tablet
325 mg PO DAILY Qty: 25 0RF
docusate sodium 100 mg Capsule
100 mg PO BID Qty: 0 0RF
oxycodone 5 mg Tablet
2.5 mg PO Q4HPRN PRN (Reason: Moderate to severe pain) Qty: 10 0RF
Continued
carvedilol 25 mg Tablet
25 mg PO Q12H
albuterol sulfate 90 mcg/actuation Hfa Aerosol Inhaler
2 puff INHALATION R Q4HPRN PRN (Reason: sob)
wnajcsnlvasg-idxjtewf-hmfhty Tablet
1 tab PO DAILY
Spiriva Respimat 2.5 mcg/actuation Mist
2 inh INHALATION R DAILY
Patient Comments:
08/14/2023, pt. skips doses when she has blood in her sputum.
[place] Vitamin
1 cap PO BID
naltrexone 2 mg tablet
2 mg PO DAILY
Patient Comments:
08/14/2023, pt. gets specially compounded.
Held
losartan 100 MG tablet
100 mg PO NOON
Hold Instructions: Until blood pressure greater than 140/90
spironolactone 25 mg Tablet
25 mg PO DAILY
Hold Instructions: Hold until blood pressure greater than 140/90
Discontinued
naproxen sodium [Aleve] 220 mg Tablet
220 mg PO NOON
Discharge Orders:
Discharge Patient (As Directed); Ordered 08/19/23
Ordered By: Demetrio Villegas
Discharge Date and Time
Print Language: MAORI
[2023-08-19] MEDS: ZOFRAN 4 MG IV (13:33)
--- NOTE | 2023-08-19 13:59 | CM ---
Patient has been medically cleared for discharge to home with [facility], PT/OT skilled services. Patient's family will transport home.
--- NOTE | 2023-08-19 14:20 | VNURNOTE ---
Home Health Liaison met with patient at 1200 to discuss [facility] nurse/therapy, visits, schedule and homebound status. Patient is agreeable and understands that visits at home will be 2-3 x per week to assess and teach medical management.
[facility] brochure provided with contact information. Patient is aware that [facility] will contact her for start of care in 1-2 days after discharge from .
[facility] referral previously completed and accepted in [facility].
[2023-08-19 15:22] VITALS: BP 144/73
[2023-08-19] MEDS: PROTONIX IV 40 MG IV (18:01)
[2023-08-19] MEDS: NSS (PRESERVATIVE FREE) 10 ML IV (18:02)
--- NOTE | 2023-08-19 18:45 | PTCARENOTE ---
Patient was supposed to be discharged today pending BM. Milk and molasses enema given as ordered. Patient then had 1 large episode of emesis, nausea, abdominal pain and multiple liquid BMs. Last BM was liquid blood. Dr. Villegas notified. Ordered
patient to stay overnight, obtain abd x-ray, and possible discharge tomorrow, pending results.
[2023-08-19 19:51] LABS: Hematocrit 35.8 % (37.0-47.0)
[2023-08-19] MEDS: COLACE PO (20:50)
[2023-08-19] MEDS: SENOKOT PO (20:50)
[2023-08-19] MEDS: COREG 25 MG PO (20:50)
[2023-08-19 23:46] VITALS: BP 127/59
[2023-08-20 07:27] VITALS: BP 116/64
[2023-08-20] MEDS: SPIRIVA RESPIMAT 2.5 MCG 2 PUFF INH (07:56)
[2023-08-20] MEDS: ASPIRIN 325 MG PO (08:49)
[2023-08-20] MEDS: PROTONIX IV 40 MG IV (08:49)
[2023-08-20] MEDS: MIRALAX PO (08:50)
[2023-08-20] MEDS: COLACE PO (08:50)
[2023-08-20] MEDS: NSS (PRESERVATIVE FREE) 10 ML IV (08:50)
[2023-08-20] MEDS: SENOKOT PO (08:50)
[2023-08-20] MEDS: COREG PO (08:56)
--- NOTE | 2023-08-20 10:37 | W.PN.HOSP.TC ---
Today's Communication/Plan
-
Discharge home
Assessment / Plan
Assessment / Plan
Patient is feeling much better today. She stated that she saw some blood after she had a bowel movement she wiped. Thinks it is hemorrhoids. No further blood. She had a soft bowel movement again this morning. She is looking forward to going
home today.
On examination awake alert not in any distress
Cardiovascular system S1-S2 appreciated
Chest clear to auscultation
Right hip site with mild shadowing
Neuroexam otherwise nonfocal
#Right Hip Fracture traumatic
s/p Right hip kathrine 08/14
Acute traumatic pathological fx 05/09 osteoporosis
pt/ot rec home health
Orthopedics following; patient to f/u with ortho outpatient
Pain control-discussed about benefits and risks of oxycodone
#Constipation
Had several Bms
#Reactive Leukocytosis
Resolved
#Mild hyponatremia
Resolved
#Osteoporosis
#History of Sjogren's
#Essential HTN
COMPOSITE MECHANIC Coreg
hold Aldactone and losartan till BP 140 mm hg or above
#History of COPD
Continue Spiriva
#DVT PPx ASA
PT/OT: patient has been ambulating well with walker with PT. plan would be to go home
Anticipated Discharge: Today
Subjective/Interval History
-
Date of Service: August 20, 2023
Objective Data
-
Vital Signs:
Vital Signs
Temp Pulse Resp BP Pulse Ox
98.8 F 72 14 116/64 93
08/20/23 07:27 08/20/23 07:58 08/20/23 07:58 08/20/23 07:27 08/20/23 07:27
I&O
08/19/23 08/20/23 08/21/23
06:59 06:59 06:59
Intake Total 960 / 960 1440 / 1440
Balance 500 / 480 3620 / 8984
--- NOTE | 2023-08-20 11:36 | W.DS.TRANS ---
Addendum entered and electronically signed by Yamilet Aponte MD 08/20/23 14:56:
Dictation- [id number]
Original Note:
DC Summary - Pharmacy Benefit Manager
-
Discharge Instructions:
Discharge Diagnosis/Procedures Right Hip Fracture s/p fall
Reactive leukocytosis
Mild hyponatremia
Constipation
Diet As tolerated
Activity As tolerated,Other activity
Additional Activity WBAT RLE on walker
Driving Restrictions Not until seen by your Dr
Bathing Restrictions None
Other Services VN
Instructions:
Stand-Alone Forms:
Changes to Home Medications: Yes
Discharge Medications:
DC Medications w/original date entered in [facility]
losartan 100 mg tablet 100 mg PO NOON Blood Pressure 08/28/17
carvedilol 25 mg tablet 25 mg PO Q12H Blood Pressure 11/15/22
Hair [place] Vitamin 1 cap PO BID Supplement 08/14/23
albuterol sulfate 90 mcg/actuation aerosol inhaler 2 puff inhalation R Q4HPRN PRN sob 08/14/23
hhbtvigwwrli-busydfjp-ifsqjk tablet 1 tab PO DAILY Supplement 08/14/23
naltrexone 2 mg PO DAILY 08/14/23
spironolactone 25 mg tablet 25 mg PO DAILY Fluid Retention/Swelling 08/14/23
tiotropium bromide 2.5 mcg/actuation mist for inhalation (Spiriva Respimat) 2 inh inhalation R DAILY 08/14/23
acetaminophen 325 mg tablet 650 mg (2 x 325 mg) PO Q4HPRN PRN mild pain/GREEN/temp> 100.4F #0 tabs 08/17/23
aspirin 325 mg tablet 325 mg PO DAILY #25 tabs 08/17/23
docusate sodium 100 mg capsule 100 mg PO BID #0 caps 08/17/23
polyethylene glycol 3350 17 gram oral powder packet (HealthyLax) 17 g PO DAILY #30 ea 08/17/23
ondansetron HCl 4 mg tablet 4 mg PO Q8H PRN nausea and vomiting 5 days #15 tabs 08/19/23
oxycodone 5 mg tablet 2.5 mg (1/2 x 5 mg) PO Q4HPRN PRN Moderate to severe pain #10 tabs 08/19/23
Home Medication Changes
new
aspirin 325 mg tablet 325 mg PO DAILY #25 tabs 08/17/23
docusate sodium 100 mg capsule 100 mg PO BID #0 caps 08/17/23
polyethylene glycol 3350 17 gram oral powder packet (HealthyLax) 17 g PO DAILY #30 ea 08/17/23
ondansetron HCl 4 mg tablet 4 mg PO Q8H PRN nausea and vomiting 5 days #15 tabs 08/19/23
oxycodone 5 mg tablet 2.5 mg (1/2 x 5 mg) PO Q4HPRN PRN Moderate to severe pain #10 tabs 08/19/23
Pending Results: No
[2023-08-20 12:15] VITALS: BP 119/62
== END 2023-08-20 12:39 | disposition home health service (06) | DRG 522 ==
LOC: 2 SOUTH 20:10
PROVIDERS: Internal Medicine; Physician Assistant; Specialist; ADMITTING PHYSICIAN Student in an Organized Health Care Education/Training Program; ATTENDING PHYSICIAN Hospitalist; CONSULT PHYSICIAN Orthopaedic Surgery; EMERGENCY PHYSICIAN Emergency Medicine; FAMILY PHYSICIAN Internal Medicine
PROC: 0SRR0J9 Replacement of Right Hip Joint, Femoral Surface with Synthetic Substitute, Cemented, Open Approach (ICD-10-PCS; 2023-08-15)
DX: M80.851A Other osteoporosis with current pathological fracture, right femur, initial encounter for fracture (principal); E87.1 Hypo-osmolality and hyponatremia; M35.00 Sjogren syndrome, unspecified; I10 Essential (primary) hypertension; J44.9 Chronic obstructive pulmonary disease, unspecified
CPT/HCPCS: 73502; 74018; 80048; 80053; 82652; 83735; 85014; 85018; 85025; 86850; 86900; 86901; 93005; 94640; 96374; 96376; 97110; 97116; 97162; 97167; 97530; 97535; 99285; C1713; C1776

== ENCOUNTER → 2023-11-27 10:59 | Outpatient (REF) | payer OTHER, SELFPAY | LOC: HWRCS 10:59 | PROVIDERS: ATTENDING PHYSICIAN Internal Medicine Cardiovascular Disease; FAMILY PHYSICIAN Internal Medicine | DX: I49.3 Ventricular premature depolarization (principal); I45.10 Unspecified right bundle-branch block; I51.7 Cardiomegaly | CPT/HCPCS: 93306 ==

== ENCOUNTER → 2024-08-31 15:41 | Outpatient (REF) | payer OTHER, SELFPAY | LOC: HWRCS 15:41 | PROVIDERS: ATTENDING PHYSICIAN Internal Medicine Cardiovascular Disease; FAMILY PHYSICIAN Internal Medicine | DX: I49.3 Ventricular premature depolarization (principal); I51.7 Cardiomegaly | CPT/HCPCS: 93306 ==